=== PATIENT | male | born 1975 | race Caucasian/White ===

== ENCOUNTER 2024-06-14 22:51 | Emergency (ER) | payer MEDICARE, MEDICAID, SELFPAY ==
[2024-06-14 22:53] VITALS: BP 163/105; PULSE 121; RESP 20; TEMP 37.1; O2SAT 98; BMI 33.0
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
--- NOTE | 2024-06-15 01:15 | PC.NURSE ---
pt wanted to know when he would see a dr. informed pt that social workers willl be in to evaluate him in the morning to ensure he is not a danger to himself. Pt became aggravated and started asking for his clothes and shoes to which i informed the pt that we couldnt allow that until he was cleared. pt walked out room at 0113, barron franco was called, pt refused to return to room and exited the ED. [employer] called.
--- NOTE | 2024-06-15 01:16 | PC.NURSE ---
At 0113, pt exited room asked KAYE Vicente when he could see a doctor. Plan of care explained to pt. Pt refused to go back in room. Yon franco called. Pt became increasingly agitated, asking for his clothes. Security at bedside. Pt left ER after exiting through ambulance bay. PD called and notified. Pt left wearing only underwear and hospital gown.
--- NOTE | 2024-06-15 01:26 | PC.NURSE ---
0112, ppd called and notified pt walked out, per jess.
--- NOTE | 2024-06-15 02:03 | PD.EDPSYCH ---
ED Psych RME/HPI General Chief Complaint: Psychiatric Symptoms Stated Complaint: MENTAL EVAL Time Seen by Provider: 06/15/24 01:43 Arrival date/time: 06/14/24 22:51 Related Data Home Medications ?Medication ?Instructions ?Recorded ?Confirmed carvedilol 3.125 mg tablet (Coreg) 3.125 mg PO BID HEART #0 tabs 05/01/14 08/11/20 furosemide 40 mg tablet (Lasix) 40 mg PO QDAY DIURETIC #0 tabs 05/01/14 08/11/20 potassium chloride 8 mEq 8 meq PO QDAY SUPPLEMENT ##0 05/24/14 08/11/20 capsule,extended release metformin 1,000 mg tablet 1,000 mg PO BID 12/27/17 08/11/20 pregabalin 75 mg capsule (Lyrica) 75 mg PO BID 12/27/17 08/11/20 duloxetine 20 mg capsule,delayed 20 mg PO QDAY 02/04/19 08/11/20 release linaclotide 145 mcg capsule 145 mcg PO QDAY PRN Constipation 02/04/19 08/11/20 (Linzess) lisinopril 5 mg tablet 5 mg PO QDAY 02/04/19 08/11/20 sumatriptan succinate 100 mg tablet 100 mg PO QDAY PRN Migraine 02/04/19 08/11/20 Headache finasteride 5 mg tablet 5 mg PO QDAY 12/20/19 08/11/20 oxycodone-acetaminophen 5 mg-325 1 tab PO BID PRN Pain (Scale Score 12/20/19 08/11/20 mg tablet (Percocet) 7-10) tamsulosin 0.4 mg capsule 0.4 mg PO QDAY 12/20/19 08/11/20 cyclobenzaprine 10 mg tablet 10 mg PO HS 08/11/20 08/11/20 omeprazole 40 mg capsule,delayed 40 mg PO QDAY 08/11/20 08/11/20 release potassium gluconate 595 mg (99 mg) 595 mg PO QDAY 08/11/20 08/11/20 tablet Previous Rx's ?Medication ?Instructions ?Recorded atorvastatin 40 mg tablet 40 mg PO QPM #30 tabs 07/08/20 Allergies Allergy/AdvReac Type Severity Reaction Status Date / Time topiramate AdvReac Severe SUICIDAL Verified 02/15/23 16:28 THOUGTHS, ANXIETY, IRRITABLE NYLON SUTURES AdvReac Intermediate RED AND Uncoded 02/15/23 16:28 INFLAMMED Course Vital Signs Vital signs: Vital Signs Temperature 98.8 F 06/14/24 22:53 Pulse Rate 121 H 06/14/24 22:53 Respiratory Rate 20 06/14/24 22:53 Blood Pressure 163/105 H 06/14/24 22:53 Pulse Oximetry (%) 98 06/14/24 22:53 Oxygen Delivery Method Room Air 06/14/24 22:53 Discharge Plan Prescriptions/Referrals Prescriptions/Med Rec: No Action oxycodone-acetaminophen [Percocet] 5-325 mg tablet 1 tab PO BID PRN (Reason: Pain (Scale Score 7-10)) tamsulosin 0.4 mg capsule 0.4 mg PO QDAY finasteride 5 mg tablet 5 mg PO QDAY furosemide [Lasix] 40 MG tablet 40 mg PO QDAY Qty: 0 carvedilol [Coreg] 3.125 MG tablet 3.125 mg PO BID Qty: 0 potassium chloride 8 MEQ capsule, extended release 8 meq PO QDAY Qty: 0 sumatriptan succinate 100 mg Tablet 100 mg PO QDAY PRN (Reason: Migraine Headache) lisinopril 5 mg Tablet 5 mg PO QDAY duloxetine 20 mg Capsule,Delayed Release(Dr/Ec) 20 mg PO QDAY Linzess 145 mcg Capsule 145 mcg PO QDAY PRN (Reason: Constipation) atorvastatin 40 mg tablet 40 mg PO QPM Qty: 30 0RF metformin 1,000 mg Tablet 1,000 mg PO BID pregabalin [Lyrica] 75 mg Capsule 75 mg PO BID cyclobenzaprine 10 mg Tablet 10 mg PO HS omeprazole 40 mg Capsule,Delayed Release(Dr/Ec) 40 mg PO QDAY potassium gluconate 595 mg (99 mg) Tablet 595 mg PO QDAY Patient/Caregiver Discharge Instructions Print Language: Ivorian
--- NOTE | 2024-06-15 02:14 | PD.EDADDENDU ---
Emergency Room Addendum Addendum Narrative: I did not do a history or physical examination on this patient. I was informed by the nurse that this patient walked out of the ED without being seen.
== END 2024-06-15 06:00 | disposition left against medical advice (07) ==
PROVIDERS: Emergency Provider Emergency Medicine
DX: Z53.21 Procedure and treatment not carried out due to patient leaving prior to being seen by health care provider (principal)
CPT/HCPCS: 96127; 99281